=== PATIENT | female | born 2000 | race American Indian/Alaskan Native ===

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

== ENCOUNTER 2020-06-19 14:31 | Emergency (ER) | payer SELFPAY ==
[2020-06-19 14:47] VITALS: BP 141/87
[2020-06-19] MEDS ORDERED: LIDOCAINE (2%) 20 MG/1 ML VIAL 20 ML MDV INFILTRATI STA (14:52)
[2020-06-19] MEDS ORDERED: SODIUM CHLORIDE 0.9% IRR 500 ML BOTTLE IR ONE (14:52)
--- NOTE | 2020-06-19 15:16 | Emergency Department Report ---
ED Lower Extremity HPI - General Chief Complaint: Extremity Injury, Lower Stated Complaint: FOOT INJURY Time Seen by Provider: 06/19/20 14:51 Source: patient Mode of arrival: Ambulatory Limitations: No Limitations - History of Present Illness Initial Comments: 20-year-old female was walking without she cut toes covered struck an object hitting her toenail causing it to near completely avulsed from her left hallux resulting in bleeding and pain earlier this morning. She tried to manipulate the toenail but was unsuccessful so came to my department for further advice and treatment options. Ports no fever, chills, sweats. No numbness tingling. MD Complaint: foot injury Injury: Toes: Right Type of Injury: blunt Place: home Severity: mild, moderate Worsens With: palpation Context: walking - Related Data Previous Rx's Medication Instructions Recorded Last Taken Type HYDROcodone/APAP 5-325 [[place] 1 each PO Q6H PRN #20 tablet 06/05/16 Unknown Rx 5-325 mg TAB] Ibuprofen Oral Liqd [Motrin Oral 600 mg PO Q6H PRN #1 bottle 06/05/16 Unknown Rx Liq 100 mg/5 ml] Chlorhexidine Gluconate [Hibiclens] 10 ml TP BID #240 liquid 06/19/20 Unknown Rx cephALEXin [Keflex] 500 mg PO Q6HR #40 capsule 06/19/20 Unknown Rx Allergies Allergy/AdvReac Type Severity Reaction Status Date / Time No Known Allergies Allergy Verified 05/14/16 22:38 ED Review of Systems ROS: Stated complaint: FOOT INJURY Other details as noted in HPI Comment: All other systems reviewed and negative ED Past Medical Hx - Past Medical History Previous Medical History?: Yes Hx Hypertension: No Hx Diabetes: No Hx Deep Vein Thrombosis: No Hx Renal Disease: No Hx Sickle Cell Disease: No Hx Seizures: No Hx Asthma: No Hx HIV: No Additional medical history: Obesity - Surgical History Past Surgical History?: No - Social History Smoking Status: Never Smoker - Medications Home Medications: Home Medications Medication Instructions Recorded Confirmed Last Taken Type HYDROcodone/APAP 5-325 [[place] 1 each PO Q6H PRN #20 tablet 06/05/16 Unknown Rx 5-325 mg TAB] Ibuprofen Oral Liqd [Motrin Oral 600 mg PO Q6H PRN #1 bottle 06/05/16 Unknown Rx Liq 100 mg/5 ml] Chlorhexidine Gluconate [Hibiclens] 10 ml TP BID #240 liquid 06/19/20 Unknown Rx cephALEXin [Keflex] 500 mg PO Q6HR #40 capsule 06/19/20 Unknown Rx ED Physical Exam - General Limitations: No Limitations General appearance: alert, in no apparent distress - Head Head exam: Present: atraumatic, normocephalic - Eye Eye exam: Present: normal appearance. Absent: scleral icterus, conjunctival injection Pupils: Present: normal accommodation - ENT ENT exam: Present: normal exam, mucous membranes moist - Neck Neck exam: Present: normal inspection - Respiratory Respiratory exam: Present: normal lung sounds bilaterally. Absent: respiratory distress - Cardiovascular Cardiovascular Exam: Present: regular rate, normal rhythm. Absent: systolic murmur, diastolic murmur, rubs, gallop - GI/Abdominal GI/Abdominal exam: Present: soft, normal bowel sounds - Extremities Exam Extremities exam: Present: normal inspection - Expanded Lower Extremity Exam Left Foot/Toe exam: Present: tenderness, nail avulsion (Left hallux. Near complete greater than 60%) Neuro vascular tendon exam: Present: no vascular compromise. Absent: abnormal cap refill 1 - Partially avulsed toenail 60% still intact and secure - Back Exam Back exam: Present: normal inspection - Neurological Exam Neurological exam: Present: alert, oriented X3 - Psychiatric Psychiatric exam: Present: normal affect, normal mood - Skin Skin exam: Present: warm, dry, intact, normal color. Absent: rash ED Course Vital Signs 06/19/20 14:45 Temperature 98.9 F Pulse Rate 98 H Respiratory 18 Rate Blood Pressure 141/87 O2 Sat by Pulse 98 Oximetry - Procedure Description Procedures done: Procedure was prepped and draped in sterile fashion 72% lidocaine with no epinephrine. The wound was was also irrigated with saline. The toenail was secured with 3-0 Prolene along the lateral aspect of the hallux as the medial half was secure in place at the matrix and then bandaged with with no complication procedure tolerated well Critical care attestation.: If time is entered above; I have spent that time in minutes in the direct care of this critically ill patient, excluding procedure time. ED Disposition Clinical Impression: Avulsion of toenail of left foot Disposition: DC-01 TO HOME OR SELFCARE Is pt being admited?: No Does the pt Need Aspirin: No Condition: Stable Instructions: Fingernail or Toenail Removal, Adult, Care After, Sutured Wound Care, Wound Care, Adult Prescriptions: Chlorhexidine Gluconate [Hibiclens] 10 ml TP BID #240 liquid cephALEXin [Keflex] 500 mg PO Q6HR #40 capsule Referrals: ALFREDO MCCLOUD MD [Staff Physician] - 3-5 Days
== END 2020-06-19 16:42 | disposition home or self-care (01) ==
LOC: ED 14:31
DX: S91.202A Unspecified open wound of left great toe with damage to nail, initial encounter (principal); Z79.899 Other long term (current) drug therapy; W22.8XXA Striking against or struck by other objects, initial encounter; Y93.89 Activity, other specified; Y92.89 Other specified places as the place of occurrence of the external cause; Y99.8 Other external cause status
CPT/HCPCS: 99282

== ENCOUNTER 2020-07-08 17:35 | Emergency (ER) | payer MEDICAID ==
[2020-07-08 17:47] VITALS: BP 147/91
--- NOTE | 2020-07-08 19:52 | Emergency Department Report ---
Suture/Staple Removal - HPI Chief Complaint: Wound/Laceration Stated Complaint: SUTURE REMOVAL Time Seen by Provider: 07/08/20 19:45 When Sutures or Susan Placed: >14 Days Ago Wound Location: Left great toe/nail ED Review of Systems ROS: Stated complaint: SUTURE REMOVAL Other details as noted in HPI Comment: All other systems reviewed and negative Skin: other (Laceration/nail avulsion left great toe) ED Past Medical Hx - Past Medical History Hx Hypertension: No Hx Diabetes: No Hx Deep Vein Thrombosis: No Hx Renal Disease: No Hx Sickle Cell Disease: No Hx Seizures: No Hx Asthma: No Hx HIV: No Additional medical history: Obesity - Social History Smoking Status: Never Smoker - Medications Home Medications: Home Medications Medication Instructions Recorded Confirmed Last Taken Type HYDROcodone/APAP 5-325 [[place] 1 each PO Q6H PRN #20 tablet 06/05/16 Unknown Rx 5-325 mg TAB] Ibuprofen Oral Liqd [Motrin Oral 600 mg PO Q6H PRN #1 bottle 06/05/16 Unknown Rx Liq 100 mg/5 ml] Chlorhexidine Gluconate [Hibiclens] 10 ml TP BID #240 liquid 06/19/20 Unknown Rx cephALEXin [Keflex] 500 mg PO Q6HR #40 capsule 06/19/20 Unknown Rx traMADoL [Ultram] 50 mg PO Q6HR PRN #10 tablet 06/19/20 Unknown Rx Suture Removal Exam - Exam General: Vital signs noted. No distress. Alert and acting appropriately. Wound: Yes Tenderness (Mild left great toe distally around nail), No Pathologic Erythema, No Drainage, No Pus, No Wound Dehiscence (Still with some nail avu lsion) Other Systems: All other systems reviewed and are unremarkable. ED Course Vital Signs 07/08/20 17:39 Temperature 98.3 F Pulse Rate 115 H Respiratory 20 Rate Blood Pressure 147/91 O2 Sat by Pulse 99 Oximetry ED Recheck MDM - Medical Decision Making Patient with nail avulsion injury about 2 .5 weeks ago. Single suture was place to tack nail down. This single suture was removed by me. Nail still loose and appears to be mildly avulsed. Informed patient that there is a chance that toenail may still fall off. There is no sign of infection and no current subungual hematoma noted. Wound care discussed with patient. She expressed understanding of instructions and agree with plan. Patient was stable at time of discharge. Critical care attestation.: If time is entered above; I have spent that time in minutes in the direct care of this critically ill patient, excluding procedure time. ED Disposition Clinical Impression: Visit for suture removal, Nail avulsion, toe Disposition: DC-01 TO HOME OR SELFCARE Is pt being admited?: No Does the pt Need Aspirin: No Condition: Stable Instructions: Wound Closure Removal, Care After Additional Instructions: There is a chance that the nail may fall off. [place]up with the [place] [employer] if it does fall off or if it does not grow appropriately. Continue to keep area clean with soap and water and dry well after each cleaning. Return to ED if symptoms changes or worsens in any way. Referrals: FAHEEM JOHNS MD [Staff Physician] - 3-5 Days Forms: Work/School Release Form(ED) Time of Disposition: 19:55
== END 2020-07-08 20:06 | disposition home or self-care (01) ==
LOC: ED 17:35
DX: Z48.02 Encounter for removal of sutures (principal); S91.112D Laceration without foreign body of left great toe without damage to nail, subsequent encounter; Z79.1 Long term (current) use of non-steroidal anti-inflammatories (NSAID); Z79.899 Other long term (current) drug therapy; X58.XXXD Exposure to other specified factors, subsequent encounter
CPT/HCPCS: 99282